=== PATIENT | male | born 1950 | race Caucasian/White ===

== ENCOUNTER → 2018-11-05 18:48 | Outpatient (REF) | payer OTHER, SELFPAY ==
[2018-11-05 19:16] LABS: Creatine Kinase 70 U/L (55-170)
[2018-11-05 19:35] LABS: Erythrocyte Sedimentation Rate 18 MM/HR (0-15)
[2018-11-05 19:45] LABS: Thyroid Stimulating Hormone 1.95 uIU/mL (0.47-4.68)
[2018-11-09 22:08] LABS: Estrogen 115.2 pg/mL (60-190)
== END ==
LOC: LAB 18:48
PROVIDERS: PCP Orthopaedic Surgery; Visit Provider Family Medicine Geriatric Medicine
DX: M79.10 Myalgia, unspecified site (principal); R63.5 Abnormal weight gain; N62 Hypertrophy of breast; G90.09 Other idiopathic peripheral autonomic neuropathy
CPT/HCPCS: 36415; 82550; 82672; 84403; 84443; 85651